=== PATIENT | male | born 1990 | race Native Hawaiian/Other Pacific Islander ===

== ENCOUNTER 2016-08-18 10:48 | Emergency (ER) | payer OTHER ==
[~2016-08-18] VITALS: Ht 185.4 cm; Wt 77.1 kg
== END 2016-08-18 12:23 | disposition home or self-care (01) ==
LOC: ED 10:48
DX: M25.511 Pain in right shoulder (principal); X50.0XXA Overexertion from strenuous movement or load, initial encounter; Y92.511 Restaurant or cafe as the place of occurrence of the external cause
CPT/HCPCS: 96372; 99283; J1885; J2175

== ENCOUNTER 2017-07-21 15:58 | Emergency (ER) | payer OTHER ==
[~2017-07-21] VITALS: Ht 185.4 cm; Wt 77.1 kg
== END 2017-07-21 17:21 | disposition home or self-care (01) ==
LOC: ED 15:58
DX: L73.9 Follicular disorder, unspecified (principal); S30.861A Insect bite (nonvenomous) of abdominal wall, initial encounter; S80.862A Insect bite (nonvenomous), left lower leg, initial encounter; W57.XXXA Bitten or stung by nonvenomous insect and other nonvenomous arthropods, initial encounter; Y92.098 Other place in other non-institutional residence as the place of occurrence of the external cause
CPT/HCPCS: 96372; 99282; J0696

== ENCOUNTER 2019-12-14 21:56 | Emergency (ER) | payer OTHER ==
[~2019-12-14] VITALS: Ht 185.4 cm; Wt 83.9 kg
[2019-12-14 23:05] VITALS: BP 109/74; TEMP 98.7
== END 2019-12-14 23:05 | disposition home or self-care (01) ==
LOC: ED 21:56
DX: H10.89 Other conjunctivitis (principal)
CPT/HCPCS: 99282

== ENCOUNTER 2022-05-20 17:47 | Emergency (ER) | payer OTHER ==
[~2022-05-20] VITALS: Ht 185.4 cm; Wt 79.8 kg
[2022-05-20 17:55] VITALS: BP 126/81; TEMP 98.8
[2022-05-20 18:33] LABS: PLATELET COUNT 390 K/uL (142-355)
[2022-05-20 18:42] LABS: POTASSIUM 3.9 mmol/L (3.6-5.2)
== END 2022-05-20 20:08 | disposition home or self-care (01) ==
LOC: ED 17:47
PROVIDERS: Emergency Medicine Emergency Medical Services
DX: K13.0 Diseases of lips (principal); B35.3 Tinea pedis; F17.210 Nicotine dependence, cigarettes, uncomplicated
CPT/HCPCS: 36415; 80048; 85027; 87040; 87070; 87077; 87185; 87186; 87205; 96360; 96365; 96375; 99284; J1885; J3370